=== PATIENT | male | born 1945 | race Caucasian/White ===

== ENCOUNTER 2018-01-20 07:46 | Day surgery (SDC) | payer OTHER ==
[~2018-01-20] VITALS: Ht 177.8 cm; Wt 103.4 kg
[~2018-01-20 07:46] MED LIST: GABAPENTIN300 MG PO; ROPINIROLE HCL2 MG PO; ROPINIROLE HCL3 MG PO; TERAZOSIN HCL10 MG PO
--- NOTE | 2018-01-20 09:19 | NUR ---
01/20/18 0918 Nathalia Suarez 0900-PATIENT ARRIVED TO PACU ON 3L NC O2 SAT 100% PATIENT NONAROUSALE. RR EVEN. ABDOMEN SOFT. LAYING ON LEFT LATERAL. IVF INFUSING. WEANED TO 2L NC.
--- NOTE | 2018-01-20 17:05 | OR ---
[facility] [address], [place] [address] Signed DATE OF OPERATION: 01/20/2018 SURGEON: Callie Barraza MD PREOPERATIVE DIAGNOSES: 1. Screening. 2. Status post right colectomy for carcinoid tumor 1987. POSTOPERATIVE DIAGNOSES: 1. Ileocolonic anastomotic ulcer at 100 cm. 2. Minimal internal hemorrhoids. 3. Enlarged prostate. 4. 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 PROCEDURES: Colonoscopy with cold biopsies of the terminal ileum and the anastomosis. 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 Once he healed up from his rather significant appendicitis, he underwent a formal right colectomy for that carcinoid tumor. He said he has had significant diarrhea since that time. He was up to using Imodium 8 times a day. He is now down to 3-4 times a day. He said there is no family history of colon cancer or polyps. His last colonoscopy was in 2007. He said it was normal. He was told to return in 10 years for repeat colonoscopy. In the office, I gave Enedina a pamphlet on colonoscopy and we looked at that together along with the risks including, but not limited to gas bloating, crampy abdominal pain, bleeding, perforation requiring surgery, and missed diagnosis. We also discussed the need for IV conscious sedation. In addition, we reviewed the bowel prep line by line. I explained Enedina even though he has diarrhea and a quick transit time, a simple bottle of Mag citrate would not be enough. We asked him to at least take some MiraLAX and Gatorade. I think he omitted the Dulcolax pills. He had expressed understanding and wished to proceed. PROCEDURE NOTE: Enedina was taken into our endoscopy suite and placed in the left lateral decubitus position. He was given divided doses of 6 mg of Versed and 125 mcg of fentanyl. A digital rectal exam was performed and he has a rather large, but smooth prostate. It is quite indurated. The adult colonoscope was then introduced and advanced all the way up to the anastomosis at 100 cm. It looks like he has an ulcer along the one side and some fibrotic tissue around that anastomosis. It appears to be an end-to-end anastomosis. Electronically Signed By: CALLIE BARRAZA MD 01/20/18 1705 PATIENT NAME: ENEDINA VIGIL OPERATIVE REPORT DATE OF : 45 REPORT #: [id number] PHYSICIAN: CALLIE BARRAZA MD PCP: JAMAR NUNN MD REPORT IS CONFIDENTIAL AND NOT TO BE RELEASED WITHOUT AUTHORIZATION [facility] [address], [place] [address] Signed The opening was just large enough to get the colonoscope through and into the terminal ileum. The terminal ileum appeared healthy. We went ahead and took a couple of biopsies of the terminal ileum and then came back to the anastomosis where we took circumferential cold biopsies of that anastomosis and up to the side where it looks like there was an ulcer. After this, the scope was slowly withdrawn. Unfortunately, he had a moderate bowel prep. He still had areas of liquid particulate stool matter I could not quite suction out completely. We saw no other pathology in the colon or rectum. Upon retroflexion of the scope, he has very small internal hemorrhoid tissue. After this, the gas was suctioned out and the colonoscope removed. Enedina tolerated the procedure quite well. RECOMMENDATIONS: I will see Enedina back in my office in 7-14 days to review his results. Callie Barraza MD ALB/MODL /[id number] cc: Jamar Nunn MD Copies: JAMAR NUNN MD ~ Electronically Signed By: CALLIE BARRAZA MD 01/20/18 1705 PATIENT NAME: ENEDINA VIGIL OPERATIVE REPORT DATE OF : 45 REPORT #: [id number] PHYSICIAN: CALLIE BARRAZA MD PCP: JAMAR NUNN MD REPORT IS CONFIDENTIAL AND NOT TO BE RELEASED WITHOUT AUTHORIZATION
== END 2018-01-20 10:15 | disposition home or self-care (01) ==
LOC: DS 07:46 → OPS 07:46 → DS 10:30 → OPS 10:30 → DS 02-12 11:30
PROVIDERS: Colon & Rectal Surgery
PROC: 0DBE8ZX Excision of Large Intestine, Via Natural or Artificial Opening Endoscopic, Diagnostic (ICD-10-PCS; 2018-01-20)
PROC: 0DBB8ZX Excision of Ileum, Via Natural or Artificial Opening Endoscopic, Diagnostic (ICD-10-PCS; principal; 2018-01-20 09:00)
DX: Z12.11 Encounter for screening for malignant neoplasm of colon (principal); K52.9 Noninfective gastroenteritis and colitis, unspecified; K55.069 Acute infarction of intestine, part and extent unspecified; K63.3 Ulcer of intestine; K64.8 Other hemorrhoids; D17.23 Benign lipomatous neoplasm of skin and subcutaneous tissue of right leg; E66.9 Obesity, unspecified; G47.33 Obstructive sleep apnea (adult) (pediatric); Z90.49 Acquired absence of other specified parts of digestive tract; Z79.899 Other long term (current) drug therapy; Z88.1 Allergy status to other antibiotic agents; Z88.8 Allergy status to other drugs, medicaments and biological substances; Z68.32 Body mass index [BMI] 32.0-32.9, adult
CPT/HCPCS: 88305; 99153; G0500; J2250; J3010; J7120